=== PATIENT | male | born 1955 | race Caucasian/White ===

== ENCOUNTER → 2017-05-20 | Outpatient (CLI) | payer OTHER ==
[2015-10-24 01:37] VITALS: BP 113/58
[~2017-05-20] MED LIST: GADOBUTROL 10 MMOL/10 ML VIAL IV ONE
--- NOTE | 2017-05-20 11:51 | KCIC ---
MR of the right tibia fibula with and without contrast HISTORY: Mass for 40 years. Calf pain with certain movements. TECHNIQUE: Routine sequences before and after intravenous contrast. FINDINGS: There is a subcutaneous mass of the lower leg posteriorly, at the level of the distal tibia and fibula within the posterior subcutaneous tissues. This is located just posterior to the distal gastrocnemius and soleus musculature. Measures 5.1 cm wide by 2.8 cm AP by 5.5 cm height. This demonstrates isointense T1 characteristics. T2-weighted images demonstrate mostly fluid signal equivalent with some internal areas of irregularity and septation. There is some mild contrast enhancement. This appears confined to the superficial tissues. No deep intramuscular invasion. Muscle tissue is intrinsically intact. No bone marrow edema, bone destruction or acute fracture. IMPRESSION: Solid subcutaneous soft tissue mass at the posterior lower leg, could be benign or malignant. No evidence of deep intramuscular invasion. Electronically signed by: Jovani Hodge MD (05/20/2017 11:48 AM) [facility]
== END | disposition home or self-care (01) ==
LOC: KCIC MRI 09:41
PROVIDERS: ATTEND Surgery
DX: R22.41 Localized swelling, mass and lump, right lower limb (principal)
CPT/HCPCS: 73720; 82565; A9585

== ENCOUNTER 2017-06-03 06:44 | Outpatient (CLI) | payer OTHER ==
[~2017-06-03] VITALS: Ht 175.3 cm; Wt 97.5 kg
[2017-06-03 07:41] LABS: BASO # 0.1 x10^3/uL (0.0-0.2); BASO % 1 % (0-3); EOS % 4 % (0-3); HEMATOCRIT 43.4 % (39.0-53.0); HEMOGLOBIN 14.5 g/dL (13.0-17.5); LYMPH # 1.5 x10^3/uL (1.0-4.8); LYMPH % 18 % (24-48); MEAN CORPUSCULAR HEMOGLOBIN 29 pg (25-35); MEAN CORPUSCULAR HGB CONC 33 g/dL (31-37); MEAN CORPUSCULAR VOLUME 88 fL (79-100); MONO % 8 % (0-9); NEUT % 69 % (31-73); PLATELET COUNT 231 x10^3/uL (140-400); RED BLOOD COUNT 4.94 x10^6/uL (4.30-5.70); RED CELL DISTRIBUTION WIDTH 15.3 % (11.5-14.5); WHITE BLOOD COUNT 8.2 x10^3/uL (4.0-11.0)
[2017-06-03 07:55] VITALS: BP 119/62
[2017-06-03 08:01] LABS: INR 1.1 (0.8-1.1); PROTHROMBIN TIME PATIENT 13.5 SEC (11.7-14.0)
[2017-06-03] MEDS ORDERED: PANT40TA3 PO (08:05)
[2017-06-03] MEDS ORDERED: CEPH500C PO (08:05)
[2017-06-03] MEDS ORDERED: AREDS (08:05)
[2017-06-03] MEDS ORDERED: LIDOCAINE 1% / SOD BICARB 8.4% 20 ML VIAL. IJ ONE ×2 (08:37→09:00)
--- NOTE | 2017-06-03 10:12 | RAD ---
Ultrasound-guided biopsy of posterior right leg mass 06/03/2017 Indication: 61-year-old male with posterior right leg mass which has slowly increased over the last approximately 30 years according to the patient. The risks and benefits of the procedure were discussed the patient. Informed consent was obtained. A timeout procedure was performed. The right posterior leg was prepped and draped using sterile barrier technique. Ultrasound evaluation demonstrated mildly heterogenous hypoechoic mass in subcutaneous tissues of the right posterior leg. Minimal internal blood flow seen on color Doppler imaging. 1% lidocaine without epinephrine was administered to the skin and overlying soft tissues. 2 x 18-gauge core biopsy samples were obtained. Manual pressure was held to achieve hemostasis. Repeat ultrasound in distress no immediate complications. Impression: Successful ultrasound-guided biopsy of right posterior leg mass
--- NOTE | 2017-06-05 17:03 | PATHOLOGY ---
PATHOLOGY REPORT * * * * * * * * FINAL DIAGNOSIS: Right posterior calf mass, ultrasound-guided needle biopsy: - SPINDLE CELL NEOPLASM-CASE SENT FOR CONSULTATION. COMMENT: Sections of the right posterior calf mass needle biopsy reveal an atypical spindle cell proliferation within a myxoid appearing stroma. Some of the spindle cells have enlarged hyperchromatic nuclei. Because of the limited size of the specimen and atypical histologic features, the case is sent for consultation to [facility]. These results will be reported separately. (JPM:mgr; 06/05/2017) REPORT ELECTRONICALLY SIGNED BY: Howard Laughlin M.D. DATE/TIME: 06/05/2017 17:03 * * * * * * * * GROSS PATHOLOGY: Received in formalin labeled "Madhav Vasquez, right calf mass," are two needle cores of ko soft tissue measuring 1.0 and 1.3 cm in length and less than 0.1 cm in diameter. The specimen is submitted entirely in cassette A1. (JPM; 06/03/17) INITIAL CPT CODE(S): A; 18647 Professional services performed [place] [address] Technical services performed by [facility] at [address] [place] [address]. SPECIMEN(S) RECEIVED: A.Right calf mass CLINICAL HISTORY: Right calf mass, superficial, slowly growing over ~ 30 years PATIENT: MADHAV VSAQUEZ /AGE: 907/10/1955 (Age: 61) PATIENT #: [id number] ALT CASE #: SPECIMEN COLLECTION DATE: 06/03/2017 SPECIMEN RECEIVED DATE: 06/03/2017 [facility] - [address] [place] [address] - PHONE: [phone] * * * END OF REPORT * * *
== END 2017-06-03 09:34 | disposition home or self-care (01) ==
LOC: INTRAD 06:44
PROVIDERS: ATTEND Surgery
DX: R22.31 Localized swelling, mass and lump, right upper limb (principal); F17.200 Nicotine dependence, unspecified, uncomplicated; Z86.69 Personal history of other diseases of the nervous system and sense organs; Z87.39 Personal history of other diseases of the musculoskeletal system and connective tissue; Z72.0 Tobacco use; Z79.01 Long term (current) use of anticoagulants; Z98.41 Cataract extraction status, right eye
CPT/HCPCS: 20206; 36415; 76942; 85027; 85610; C1887

== ENCOUNTER 2017-06-06 17:14 | Emergency (ER) | payer OTHER ==
[~2017-06-06] VITALS: Ht 175.3 cm; Wt 97.5 kg
[~2017-06-06 17:14] MED LIST changes: +AREDS; +CEPH500C PO; -GADOBUTROL 10 MMOL/10 ML VIAL IV ONE; +PANT40TA3 PO
[2017-06-06] MEDS ORDERED: OXYMETAZOLINE 0.05% NASAL SPRAY 30ML BOTTLE. NS ONE (17:45)
[2017-06-06] MEDS ORDERED: oxyCODONE/APAP 5/325 1 TAB TABLET PO ONE (17:45)
[2017-06-06] MEDS ORDERED: LIDOCAINE 1% / SOD BICARB 8.4% 20 ML VIAL. IJ ONE (18:00)
--- NOTE | 2017-06-06 18:43 | PHYS DOC ---
Past Medical History Past Medical History: Other Additional Past Medical Histor: Darier skin disease, hiatal hernia Past Surgical History: Tonsillectomy Additional Past Surgical Histo: stretch esphogus, Lumber fusion, L eye, L thumb , R cataract Alcohol Use: Occasionally Drug Use: None Adult General Chief Complaint Chief Complaint: MECHANICAL FALL HPI HPI Patient is a 61 year old male presenting to the emergency department for evaluation of head pain status post fall shortly prior to arrival. Patient reportedly was up on his ladder approximately 7 feet high trying to pull some branches. Patient says that he lost his balance and fell forward landing on the left side of his face. 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 Patient says that his tetanus status is up-to- date. Denies any head neck chest abdomen back or extremity pain rather he only says his only pain is on his face. He denies taking any blood thinners and he is in no obvious distress with normal vital signs. Review of Systems Review of Systems Constitutional: Denies fever or chills [] Eyes: Denies change in visual acuity, redness, or eye pain [] HENT: Denies nasal congestion or sore throat [] Respiratory: Denies cough or shortness of breath [] Cardiovascular: No additional information not addressed in HPI [] GI: Denies abdominal pain, nausea, vomiting, bloody stools or diarrhea [] : Denies dysuria or hematuria [] Musculoskeletal: Denies back pain or joint pain [] Integument: Denies rash or skin lesions [] Neurologic: Denies headache, focal weakness or sensory changes [] Current Medications Current Medications Current Medications Medications (Trade) Dose Ordered Sig/[facility] Start Time Stop Time Status Last Admin Dose Admin Fentanyl Citrate (Fentanyl 2ml Vial) 50 mcg 1X ONCE 06/06/17 19:45 06/06/17 19:46 DC Ketorolac Tromethamine (Toradol) 15 mg 1X ONCE 06/06/17 19:45 06/06/17 19:46 DC Lidocaine/Sodium Bicarbonate (Buffered Lidocaine 1%) 20 ml 1X ONCE 06/06/17 18:00 06/06/17 18:01 DC 06/06/17 18:02 20 ML Oxycodone/ Acetaminophen (Percocet 5/325) 2 tab 1X ONCE 06/06/17 17:45 06/06/17 17:46 DC 06/06/17 17:46 2 TAB Oxymetazoline HCl (Afrin) 2 spray 1X ONCE 06/06/17 17:45 06/06/17 17:46 DC 06/06/17 18:04 2 SPRAY Piperacillin Sod/ Tazobactam Sod 3.375 gm/Sodium Chloride 50 ml @ 100 mls/hr 1X ONCE 06/06/17 19:15 06/06/17 19:44 DC 06/06/17 19:15 100 MLS/HR Allergies Allergies Allergies Coded Allergies Type Severity Reaction Last Updated Verified No Known Drug Allergies 10/24/15 No Physical Exam Physical Exam Constitutional: Well developed, well nourished, no acute distress, non-toxic appearance. [] HENT: Normocephalic, trauma to face, pain on the left maxilla with pain in his bridge of his nose as well. There is a septal hematoma on the left side. No active bleeding currently. Eyes: PERRLA on R eye. Neck: Normal range of motion, no tenderness, supple, no stridor. [] Cardiovascular:Heart rate regular rhythm, no murmur [] Lungs & Thorax: Bilateral breath sounds clear to auscultation [] Abdomen: Bowel sounds normal, soft, no tenderness, no masses, no pulsatile masses. [] Skin: Warm, dry, no erythema, no rash. [] Back: No tenderness, no CVA tenderness. [] Extremities: No tenderness, no cyanosis, no clubbing, ROM intact, no edema. [] Neurologic: Alert and oriented X 3, normal motor function, normal sensory function, no focal deficits noted. [] Current Patient Data Vital Signs Vital Signs Date Time Temp Pulse Resp B/P (MAP) Pulse Ox O2 Delivery O2 Flow Rate FiO2 06/06/17 19:46 20 94 Room Air 06/06/17 18:05 63 142/65 (90) 06/06/17 17:20 97.5 97.5 EKG EKG [] Radiology/Procedures Radiology/Procedures CT HEAD AND CERVICAL SPINE WO, CT MAXILLOFACIAL WO CONTRAST dated 06/06/2017 6:12 PM . History: Status post fall, pain Technique: Noncontrast CT imaging was performed of the head, maxillofacial region, and cervical spine. Multiplanar reconstruction images are submitted. Exposure: One or more of the following individualized dose reduction techniques were utilized for this examination: 1. Automated exposure control 2. Adjustment of the mA and/or kV according to patient size 3. Use of iterative reconstruction technique. Head CT Comparison: None Findings: No acute extra-axial or parenchymal hemorrhage is identified. There is no significant intra-axial mass effect, midline shift, or extra-axial fluid collection. The maldonado-white differentiation of the major vascular territories is preserved. The ventricles, sulci, and cisterns are within normal limits in size and configuration. Mastoid air cells are aerated.There is no significant focal calvarial abnormality. Impression: 1. No acute intracranial abnormality is identified. Cervical spine CT Comparison: None Findings: No acute cervical spine fracture is identified. Vertebral body stature and AP alignment are within normal limits. Atlanto-axial distance is within normal limits, associated degenerative change. There is appropriate alignment of lateral masses of C1 relative to C2. Occipital condylar-C1 relationship is maintained. There is moderate to severe degenerative disc disease C4-5 and to lesser degree at C5-C6. There is minimal disc osteophyte complex C4-5 at which there is likely mild spinal stenosis. There is uncovertebral degenerative change greatest at C4-5, contributes to severe narrowing of the left neural foramen at this level. There is facet degenerative change greatest at C4-5 and on the right at C5-C6. There is emphysema of the visualized lung apices. Small foci of density in the visualized superior trachea could be due to mucus. There are multiple nonspecific nodes of the visualized bilateral neck, borderline enlarged node posteriorly on the left at 1 cm short axis dimension and also on the right up to 1.2 cm short axis dimension. Impression: 1. No acute cervical spine fracture is identified. 2. There is degenerative disc disease and spondylosis greatest C4-5 at which is likely mild spinal stenosis. There is also narrowing the left C4-5 neural foramen due to facet and uncovertebral degenerative change. 3. There are multiple nodes of the bilateral neck, a couple which are slightly enlarged for which clinical follow-up advised. Maxillofacial CT: FINDINGS: There is near complete opacification of the left maxillary sinus, air-fluid level present. There is slightly depressed and comminuted fracture of the anterior wall of left maxillary sinus, also nondisplaced fracture of the lateral wall of the left maxillary sinus. There is prominent gas in the soft tissues anterior to the left orbit and left maxillary sinus as well as the nose greater on the left. There is some gas in the inferomedial aspect of the left orbit. Left globe is small and misshapen with some internal calcification. There is a fracture of the left inferior orbital wall without significant displacement. There is probably a nondisplaced fracture of the left lamina papyracea. There is air-fluid level in the left sphenoid sinus. There is patchy left ethmoid air cell mucosal thickening. Frontal sinus is not significantly pneumatized. IMPRESSION: 1. There are fractures of the anterior and lateral left maxillary ortiz, also nondisplaced fracture of the left inferior orbital wall and probable nondisplaced fracture of the left lamina papyracea. There are air-fluid levels in the left maxillary and sphenoid sinuses. There is gas in the soft tissues, also in the left orbit. Misshapen and partially calcified left globe is likely chronic. Electronically signed by: Suman Moran MD (06/06/2017 6:45 PM) [facility] DICTATED and SIGNED BY: SUMAN MORAN MD DATE: 06/06/171831 Impressions: Septal hematoma drained by applying topical lidocaine and then injected small amount of lidocaine with epinephrine and 16-gauge needle used to evacuate hematoma. Good results but no packing placed. Course & Med Decision Making Course & Med Decision Making I recommended transfer to a facility with ENT coverage given this is a considered a open fracture. Patient refused and verbalized understanding of why I wanted to transfer him including higher level of care and avoiding infection in his face as he is exposed to pathogens that can cause worsening infection. A compromise was made that he would follow with his ENT tomorrow and he will come back to the ER sooner if he is getting worse. Patient aware and agreeable with plan for discharge and verbalized understanding of the need for short-term follow-up and strict ER return precautions discussed including worsening pain fevers vomiting or other general concerns. Dragon Disclaimer Dragon Disclaimer This electronic medical record was generated, in whole or in part, using a voice recognition dictation system. Departure Departure Impression: Primary Impression: Facial bones, open fracture Additional Impressions: Nasal septal hematoma Nose abrasion Disposition: 01 HOME, SELF-CARE Condition: STABLE Referrals: HOMAR WOOTEN MD (PCP) Patient Instructions: Facial Fracture Additional Instructions: Call your ENT tomorrow and Dr. Wharton at [phone] and let them know you are a [facility] resident. Come back to the ED sooner with any new or worsening symptoms. Scripts Amoxicillin/Potassium Clav (AUGMENTIN 875-125 TABLET) 1 Each Tablet 1 TAB PO BID, #14 TAB Prov: HOMAR CASTRO DO 06/06/17 Ondansetron (ZOFRAN ODT) 4 Mg Tab.rapdis 4 MG PO BID Y for NAUSEA/VOMITING, #10 TAB Prov: HOMAR CASTRO DO 06/06/17 Hydrocodone/Apap 5-325 (NORCO 5-325 TABLET) 1 Each Tablet 1 TAB PO PRN Q6HRS Y for PAIN, #20 TAB 0 Refills Prov: HOMAR CASTRO DO 06/06/17 Problem Qualifiers Primary Impression: Facial bones, open fracture Encounter type: initial encounter Facial bone/location: unspecified site of maxillary bone Laterality: left Qualified Codes: S02.40DB - Maxillary fracture, left side, initial encounter for open fracture HOMAR CASTRO DO Jun 06, 2017 18:43
--- NOTE | 2017-06-06 18:48 | RAD ---
CT HEAD AND CERVICAL SPINE WO, CT MAXILLOFACIAL WO CONTRAST dated 06/06/2017 6:12 PM . History: Status post fall, pain Technique: Noncontrast CT imaging was performed of the head, maxillofacial region, and cervical spine. Multiplanar reconstruction images are submitted. Exposure: One or more of the following individualized dose reduction techniques were utilized for this examination: 1. Automated exposure control 2. Adjustment of the mA and/or kV according to patient size 3. Use of iterative reconstruction technique. Head CT Comparison: None Findings: No acute extra-axial or parenchymal hemorrhage is identified. There is no significant intra-axial mass effect, midline shift, or extra-axial fluid collection. The maldonado-white differentiation of the major vascular territories is preserved. The ventricles, sulci, and cisterns are within normal limits in size and configuration. Mastoid air cells are aerated.There is no significant focal calvarial abnormality. Impression: 1. No acute intracranial abnormality is identified. Cervical spine CT Comparison: None Findings: No acute cervical spine fracture is identified. Vertebral body stature and AP alignment are within normal limits. Atlanto-axial distance is within normal limits, associated degenerative change. There is appropriate alignment of lateral masses of C1 relative to C2. Occipital condylar-C1 relationship is maintained. There is moderate to severe degenerative disc disease C4-5 and to lesser degree at C5-C6. There is minimal disc osteophyte complex C4-5 at which there is likely mild spinal stenosis. There is uncovertebral degenerative change greatest at C4-5, contributes to severe narrowing of the left neural foramen at this level. There is facet degenerative change greatest at C4-5 and on the right at C5-C6. There is emphysema of the visualized lung apices. Small foci of density in the visualized superior trachea could be due to mucus. There are multiple nonspecific nodes of the visualized bilateral neck, borderline enlarged node posteriorly on the left at 1 cm short axis dimension and also on the right up to 1.2 cm short axis dimension. Impression: 1. No acute cervical spine fracture is identified. 2. There is degenerative disc disease and spondylosis greatest C4-5 at which is likely mild spinal stenosis. There is also narrowing the left C4-5 neural foramen due to facet and uncovertebral degenerative change. 3. There are multiple nodes of the bilateral neck, a couple which are slightly enlarged for which clinical follow-up advised. Maxillofacial CT: FINDINGS: There is near complete opacification of the left maxillary sinus, air-fluid level present. There is slightly depressed and comminuted fracture of the anterior wall of left maxillary sinus, also nondisplaced fracture of the lateral wall of the left maxillary sinus. There is prominent gas in the soft tissues anterior to the left orbit and left maxillary sinus as well as the nose greater on the left. There is some gas in the inferomedial aspect of the left orbit. Left globe is small and misshapen with some internal calcification. There is a fracture of the left inferior orbital wall without significant displacement. There is probably a nondisplaced fracture of the left lamina papyracea. There is air-fluid level in the left sphenoid sinus. There is patchy left ethmoid air cell mucosal thickening. Frontal sinus is not significantly pneumatized. IMPRESSION: 1. There are fractures of the anterior and lateral left maxillary ortiz, also nondisplaced fracture of the left inferior orbital wall and probable nondisplaced fracture of the left lamina papyracea. There are air-fluid levels in the left maxillary and sphenoid sinuses. There is gas in the soft tissues, also in the left orbit. Misshapen and partially calcified left globe is likely chronic. Electronically signed by: Ernesto Moran MD (06/06/2017 6:45 PM) [facility]
[2017-06-06] MEDS ORDERED: PIPERACILLIN/TAZOBACTAM 3.375 GM in IV NORMAL SALINE 50ML 50 ML IV ONE (19:15)
[2017-06-06] MEDS ORDERED: KETOROLAC TROMETHAMINE 30 MG/ML INJ. IV ONE (19:45)
[2017-06-06] MEDS ORDERED: fentaNYL PF VIAL 100 MCG/2 ML VIAL IV ONE (19:45)
[2017-06-06] MEDS ORDERED: HYDR-971 PO (19:59)
[2017-06-06] MEDS ORDERED: ONDA4TAB10 PO (19:59)
[2017-06-06] MEDS ORDERED: AMOX1TAB61 PO (19:59)
[2017-06-06 20:22] VITALS: BP 118/60
== END 2017-06-06 20:36 | disposition home or self-care (01) ==
LOC: ER 17:14
DX: S02.40FB Zygomatic fracture, left side, initial encounter for open fracture (principal); S02.82XA Fracture of other specified skull and facial bones, left side, initial encounter for closed fracture; S00.33XA Contusion of nose, initial encounter; H54.42 Blindness, left eye, normal vision right eye; Z98.41 Cataract extraction status, right eye; W11.XXXA Fall on and from ladder, initial encounter; Y93.89 Activity, other specified; Y92.89 Other specified places as the place of occurrence of the external cause; Y99.8 Other external cause status
CPT/HCPCS: 10140; 70450; 70486; 72125; 96365; 96375; 99284; J1885; J2543; J3010

== ENCOUNTER 2017-06-13 17:08 | Emergency (ER) | payer OTHER ==
[~2017-06-13] VITALS: Ht 175.3 cm; Wt 97.5 kg
[~2017-06-13 17:08] MED LIST changes: +AMOX1TAB61 PO; +HYDR-971 PO; +ONDA4TAB10 PO
[2017-06-13] MEDS ORDERED: ALBUTEROL SULFATE 2.5 MG/3 ML NEBU. NEB ONE ×2 (19:00)
[2017-06-13] MEDS ORDERED: predniSONE 10 MG TABLET PO ONE (19:00)
[2017-06-13] MEDS ORDERED: IPRATRPIUM/ALBUTEROL 0.5/2.5MG 3 ML NEBU. NEB ONE (19:00)
[2017-06-13 19:24] LABS: BASO # 0.1 x10^3/uL (0.0-0.2); BASO % 1 % (0-3); EOS % 3 % (0-3); HEMATOCRIT 41.6 % (39.0-53.0); LYMPH # 1.4 x10^3/uL (1.0-4.8); LYMPH % 14 % (24-48); MEAN CORPUSCULAR HEMOGLOBIN 30 pg (25-35); MEAN CORPUSCULAR HGB CONC 34 g/dL (31-37); MEAN CORPUSCULAR VOLUME 88 fL (79-100); MONO % 7 % (0-9); NEUT % 75 % (31-73); PLATELET COUNT 233 x10^3/uL (140-400); RED BLOOD COUNT 4.74 x10^6/uL (4.30-5.70); RED CELL DISTRIBUTION WIDTH 15.2 % (11.5-14.5); WHITE BLOOD COUNT 9.9 x10^3/uL (4.0-11.0)
[2017-06-13 19:36] LABS: CALCIUM 8.6 mg/dL (8.5-10.1); CREATININE 0.9 mg/dL (0.7-1.3); GFR 85.2; POTASSIUM 3.4 mmol/L (3.5-5.1)
[2017-06-13 19:42] LABS: ALBUMIN 3.4 g/dL (3.4-5.0); ALBUMIN/GLOBULIN RATIO 0.9 (1.0-1.7); TOTAL BILIRUBIN 0.4 mg/dL (0.2-1.0); TOTAL PROTEIN 7.2 g/dL (6.4-8.2)
[2017-06-13] MEDS ORDERED: CONTRAST GIVEN MC PRN (20:00)
[2017-06-13] MEDS ORDERED: IOHEXOL 300 MG/ML 75 ML VIAL IV ONE (20:15)
--- NOTE | 2017-06-13 21:00 | RAD ---
CT CHEST W/CONTRAST dated 06/13/2017 7:44 PM Indication: Hemoptysis, right hilar fullness, recent fall last week, pain Comparison: No comparison is available. Technique: Contiguous axial imaging the chest performed following the administration of intravenous contrast. One or more of the following individualized dose reduction techniques were utilized for this examination: 1. Automated exposure control 2. Adjustment of the mA and/or kV according to patient size 3. Use of iterative reconstruction technique Findings: Heart size mildly enlarged. No pericardial effusion. There are calcified bilateral hilar, subcarinal and left paratracheal lymph nodes. Mild diffuse wall thickening of the thoracic esophagus. Central airways are patent. Mild diffuse bronchial wall thickening. No endobronchial lesion is apparent. There is mild/moderate upper zone emphysema. Mild dependent groundglass opacity in the lower lobes, likely atelectasis. No consolidation or pleural effusion. No pneumothorax. Mild right apical scarring. Small noncalcified pulmonary nodule in the left lower lobe on image 41 measures 5 mm. There are a few scattered calcified granuloma. Possible small nodule in the left upper lobe on image 24 measures 4 mm. Limited images of the upper abdomen show calcific stones at the gallbladder neck. Prominent duodenal diverticulum. Exophytic low-density focus at the right kidney midpole, likely cyst. Bone window show no acute findings. There is mild superior endplate wedge compression deformity of L1, age indeterminate. Multilevel spondylosis. Old healed rib fractures on the right. IMPRESSION: 1. No acute abnormality of chest. 2. Diffuse bronchial wall thickening. Consider acute or chronic bronchial inflammatory process. 3. Small noncalcified pulmonary nodules in the left lower lobe and left upper lobe, nonspecific. Follow-up imaging may be warranted to ensure stability. 3. Mild to moderate emphysema. 4. Diffuse wall thickening of the thoracic esophagus, nonspecific. Consider acute or chronic esophagitis. 5. Cholelithiasis. 6. Mild superior endplate compression fracture at L1, age indeterminate. Electronically signed by: Jovani Correia MD (06/13/2017 8:56 PM) [facility]
[2017-06-13 22:00] VITALS: BP 141/64
[2017-06-13] MEDS ORDERED: PRED50TA PO (22:49)
[2017-06-13] MEDS ORDERED: HYDR-971 PO (22:49)
[2017-06-13] MEDS ORDERED: VENTOLIN HFA18 GM INH (22:49)
--- NOTE | 2017-06-13 22:51 | PHYS DOC ---
Past Medical History Past Medical History: Other Additional Past Medical Histor: Darier skin disease, hiatal hernia Past Surgical History: Tonsillectomy Additional Past Surgical Histo: stretch esphogus, Lumber fusion, L eye, L thumb , R cataract Alcohol Use: Occasionally Drug Use: None Adult General Chief Complaint Chief Complaint: COUGH HPI HPI Patient is a 61 year old [f__sex] who presents with [] Review of Systems Review of Systems Constitutional: Denies fever or chills [] Eyes: Denies change in visual acuity, redness, or eye pain [] HENT: Denies nasal congestion or sore throat [] Respiratory: Denies cough or shortness of breath [] Cardiovascular: No additional information not addressed in HPI [] GI: Denies abdominal pain, nausea, vomiting, bloody stools or diarrhea [] : Denies dysuria or hematuria [] Musculoskeletal: Denies back pain or joint pain [] Integument: Denies rash or skin lesions [] Neurologic: Denies headache, focal weakness or sensory changes [] Endocrine: Denies polyuria or polydipsia [] Current Medications Current Medications Current Medications Medications (Trade) Dose Ordered Sig/Miri Start Time Stop Time Status Last Admin Dose Admin Albuterol Sulfate (Ventolin Neb Soln) 2.5 mg 1X ONCE 06/13/17 19:00 06/13/17 19:01 DC 06/13/17 19:20 2.5 MG Albuterol/ Ipratropium (Duoneb) 3 ml 1X ONCE 06/13/17 19:00 06/13/17 19:01 DC 06/13/17 19:20 3 ML Info (Do NOT chart on this entry -- for MONITORING) 1 each PRN DAILY PRN 06/13/17 20:00 06/15/17 19:59 Iohexol (Omnipaque 300 Mg/ml) 75 ml 1X ONCE 06/13/17 20:15 06/13/17 20:16 DC 06/13/17 20:39 75 ML Prednisone (Prednisone) 40 mg 1X ONCE 06/13/17 19:00 06/13/17 19:01 DC 06/13/17 19:11 40 MG Allergies Allergies Allergies Coded Allergies Type Severity Reaction Last Updated Verified No Known Drug Allergies 10/24/15 No Physical Exam Physical Exam Constitutional: Well developed, well nourished, no acute distress, non-toxic appearance. [] HENT: Normocephalic, atraumatic, bilateral external ears normal, oropharynx moist, no oral exudates, nose normal. [] Eyes: PERRLA, EOMI, conjunctiva normal, no discharge. [] Neck: Normal range of motion, no tenderness, supple, no stridor. [] Cardiovascular:Heart rate regular rhythm, no murmur [] Lungs & Thorax: Bilateral breath sounds clear to auscultation [] Abdomen: Bowel sounds normal, soft, no tenderness, no masses, no pulsatile masses. [] Skin: Warm, dry, no erythema, no rash. [] Back: No tenderness, no CVA tenderness. [] Extremities: No tenderness, no cyanosis, no clubbing, ROM intact, no edema. [] Neurologic: Alert and oriented X 3, normal motor function, normal sensory function, no focal deficits noted. [] Psychologic: Affect normal, judgement normal, mood normal. [] Current Patient Data Vital Signs Vital Signs Date Time Temp Pulse Resp B/P (MAP) Pulse Ox O2 Delivery O2 Flow Rate FiO2 06/13/17 20:00 21 99/61 (74) 95 06/13/17 19:22 Room Air 06/13/17 17:30 98.4 69 98.4 Lab Values Laboratory Tests Test 06/13/17 19:15 White Blood Count 9.9 x10^3/uL (4.0-11.0) Red Blood Count 4.74 x10^6/uL (4.30-5.70) Hemoglobin 14.0 g/dL (13.0-17.5) Hematocrit 41.6 % (39.0-53.0) Mean Corpuscular Volume 88 fL (79-100) Mean Corpuscular Hemoglobin 30 pg (25-35) Mean Corpuscular Hemoglobin Concent 34 g/dL (31-37) Red Cell Distribution Width 15.2 % (11.5-14.5) H Platelet Count 233 x10^3/uL (140-400) Neutrophils (%) (Auto) 75 % (31-73) H Lymphocytes (%) (Auto) 14 % (24-48) L Monocytes (%) (Auto) 7 % (0-9) Eosinophils (%) (Auto) 3 % (0-3) Basophils (%) (Auto) 1 % (0-3) Neutrophils # (Auto) 7.4 x10^3uL (1.8-7.7) Lymphocytes # (Auto) 1.4 x10^3/uL (1.0-4.8) Monocytes # (Auto) 0.7 x10^3/uL (0.0-1.1) Eosinophils # (Auto) 0.3 x10^3/uL (0.0-0.7) Basophils # (Auto) 0.1 x10^3/uL (0.0-0.2) Sodium Level 140 mmol/L (136-145) Potassium Level 3.4 mmol/L (3.5-5.1) L Chloride Level 102 mmol/L (98-107) Carbon Dioxide Level 27 mmol/L (21-32) Anion Gap 11 (6-14) Blood Urea Nitrogen 12 mg/dL (8-26) Creatinine 0.9 mg/dL (0.7-1.3) Estimated GFR (Cockcroft-Gault) 85.2 BUN/Creatinine Ratio 13 (6-20) Glucose Level 90 mg/dL (70-99) Calcium Level 8.6 mg/dL (8.5-10.1) Total Bilirubin 0.4 mg/dL (0.2-1.0) Aspartate Amino Transferase (AST) 43 U/L (15-37) H Alanine Aminotransferase (ALT) 71 U/L (16-63) H Alkaline Phosphatase 180 U/L (46-116) H Total Protein 7.2 g/dL (6.4-8.2) Albumin 3.4 g/dL (3.4-5.0) Albumin/Globulin Ratio 0.9 (1.0-1.7) L Laboratory Tests 06/13/17 19:15 Laboratory Tests 06/13/17 19:15 EKG EKG [] Radiology/Procedures Radiology/Procedures [] Course & Med Decision Making Course & Med Decision Making Pertinent Labs and Imaging studies reviewed. (See chart for details) [] Dragon Disclaimer Dragon Disclaimer This electronic medical record was generated, in whole or in part, using a voice recognition dictation system. Departure Departure Impression: Primary Impression: Hemoptysis Additional Impressions: Cough COPD exacerbation Pulmonary nodule Disposition: 01 HOME, SELF-CARE Condition: IMPROVED Referrals: HOMAR WOOTEN MD (PCP) Patient Instructions: Chronic Obstructive Pulmonary Disease, Hemoptysis, Pulmonary Nodule, Smoking Cessation Additional Instructions: Please follow up with your doctor for further evaluation of your coughing up of blood if it persists. You have a small nodule in your lung that is likely secondary to old scarring however this should also be followed up by her primary care doctor. I have given you a copy of her CT report to take with you when he see Dr. Wooten next. Your physical exam and your CT scan are consistent with you having COPD. I have started you on an albuterol inhaler and steroids. He should also see her doctor so that they can continue and optimize her management for your COPD. They might need to refer you to a lung specialist. Scripts Prednisone (PREDNISONE) 50 Mg Tablet 1 TAB PO DAILY, #5 TAB Prov: LASHANDA WEBER MD 06/13/17 Hydrocodone/Apap 5-325 (NORCO 5-325 TABLET) 1 Each Tablet 1 TAB PO QID Y for PAIN, #20 TAB Prov: LASHANDA WEBER MD 06/13/17 Albuterol Sulfate (VENTOLIN HFA INHALER) 18 Gm Hfa.aer.ad 2 PUFF INH QID Y for WHEEZING, #1 INHALER 0 Refills Prov: LASHANDA WEBER MD 06/13/17 Problem Qualifiers LASHANDA WEBER MD Jun 13, 2017 22:51
--- NOTE | 2017-06-14 08:26 | RAD ---
Indication cough. PA and lateral views of the chest were obtained. Comparison is made to an examination 10/24/2015. There are probable background changes of emphysema or fibrosis. There are some calcified hilar or mediastinal lymph nodes. Heart size is similar to the previous exam. There is no gross congestive heart failure. There is no consolidated pneumonia. A significant change compared to the previous exam is not seen. IMPRESSION:: Chronic changes. No acute finding. No significant change
== END 2017-06-13 22:55 | disposition home or self-care (01) ==
LOC: ER 17:08
DX: J44.1 Chronic obstructive pulmonary disease with (acute) exacerbation (principal); R04.2 Hemoptysis; R91.1 Solitary pulmonary nodule
CPT/HCPCS: 36415; 71020; 71260; 80053; 85027; 94250; 94640; 99285; J7512; J7613; J7620; Q9967

== ENCOUNTER → 2017-07-09 | Outpatient (CLI) | payer OTHER ==
[2017-06-13 22:00] VITALS: BP 141/64
[~2017-07-09] MED LIST changes: +PRED50TA PO; +VENTOLIN HFA18 GM INH
--- NOTE | 2017-07-09 12:13 | RAD ---
Radionuclide gastric emptying study, 07/09/2017: History: Bloating, gassiness The study was performed utilizing a solid test meal radiolabeled with 2.1 mCi of technetium 99m sulfur colloid. The time to half emptying of the test meal from the patient's stomach was estimated at 178 minutes. A normal T1/2 is 60 minutes +/- 30 minutes. IMPRESSION: Moderately delayed gastric emptying.
== END | disposition home or self-care (01) ==
LOC: NM 06:50
PROVIDERS: ATTEND Internal Medicine Gastroenterology
DX: K30 Functional dyspepsia (principal)
CPT/HCPCS: 78264; A9541

== ENCOUNTER 2017-08-24 11:41 | Emergency (ER) | payer OTHER ==
[~2017-08-24] VITALS: Ht 175.3 cm; Wt 90.7 kg
[2017-08-24 11:55] VITALS: BP 116/68
[2017-08-24] MEDS ORDERED: HYDROcodone/APAP 5/325MG 1 TAB TABLET PO ONE (12:15)
[2017-08-24] MEDS ORDERED: LIDOCAINE 1%/EPI 1:200,000 30 ML VIAL. INJ ONE (12:15)
--- NOTE | 2017-08-24 13:51 | RAD ---
Three-view right hand radiographs 08/24/2017 Clinical history: Chainsaw laceration to the right hand earlier today. PA, lateral and oblique digital radiographs of the right hand were obtained. No fracture or dislocation of the right hand is seen. A 3 mm metallic foreign body is seen within the proximal metaphysis of the proximal phalanx of the right first finger. This is of uncertain age. Mild to moderate degenerative changes are seen involving the first MCP joint. Moderate to severe degenerative changes are seen involving the first carpometacarpal joint. Impression: No fracture or dislocation of the right hand is seen.
--- NOTE | 2017-08-24 14:54 | PHYS DOC ---
Past Medical History Past Medical History: Other Additional Past Medical Histor: Darier skin disease, hiatal hernia Past Surgical History: Tonsillectomy Additional Past Surgical Histo: stretch esphogus, Lumber fusion, L eye, L thumb , R cataract Alcohol Use: Occasionally Drug Use: None Adult General Chief Complaint Chief Complaint: LACERATION/AVULSION HPI HPI Patient is a 62 year old male who presents with right fingers laceration. Patient states he got cut by a chain saw that kicked back. Review of Systems Review of Systems Constitutional: Denies fever or chills [] Musculoskeletal: Denies back pain or joint pain [] Integument: right fingers laceration Neurologic: Denies headache, focal weakness or sensory changes [] Current Medications Current Medications Current Medications Medications (Trade) Dose Ordered Sig/Miri Start Time Stop Time Status Last Admin Dose Admin Acetaminophen/ Hydrocodone Bitart (Lortab 5/325) 2 tab 1X ONCE 08/24/17 12:15 08/24/17 12:16 DC 08/24/17 12:23 2 TAB Lidocaine/ Epinephrine (Xylocaine 1%-Epi 1:200,000) 30 ml 1X ONCE 08/24/17 12:15 08/24/17 12:16 DC Allergies Allergies Allergies Coded Allergies Type Severity Reaction Last Updated Verified No Known Drug Allergies 10/24/15 No Physical Exam Physical Exam Constitutional: Well developed, well nourished, no acute distress, non-toxic appearance. [] Skin: Right ventral mid phalanx With a laceration approximately 1 cm long, right proximal middle finger at the MIP joint with a laceration approx. 1 cm, right ring finger with a laceration approximately 2 cm long proximal phalange next, right pinky finger with a laceration approximately 1 cm long mid phalanx. There is no tendon involvement in either of these lacerations. Full range of motion to the fingers. Cap refill less than 2 seconds to the fingers. Adequate radial medial and ulnar sensation to the right hand. +2 right radial pulse. Neurologic: Alert and oriented X 3, normal motor function, normal sensory function, no focal deficits noted. [] Psychologic: Affect normal, judgement normal, mood normal. [] Current Patient Data Vital Signs Vital Signs Date Time Temp Pulse Resp B/P (MAP) Pulse Ox O2 Delivery O2 Flow Rate FiO2 08/24/17 11:55 97.9 80 18 95 Room Air 97.9 EKG EKG [] Radiology/Procedures Radiology/Procedures []PROCEDURE: HAND RIGHT 3V Three-view right hand radiographs 08/24/2017 Clinical history: Chainsaw laceration to the right hand earlier today. PA, lateral and oblique digital radiographs of the right hand were obtained. No fracture or dislocation of the right hand is seen. A 3 mm metallic foreign body is seen within the proximal metaphysis of the proximal phalanx of the right first finger. This is of uncertain age. Mild to moderate degenerative changes are seen involving the first MCP joint. Moderate to severe degenerative changes are seen involving the first carpometacarpal joint. Impression: No fracture or dislocation of the right hand is seen. DICTATED and SIGNED BY: MARSHA ASTUDILLO MD DATE: 08/24/17 [id number] CC: HOMAR WOOTEN MD; WILLY BOLANOS APRN ~ Indication: Right fingers laceration Procedure: The patient was placed in the appropriate position and anesthesia around the lacerations were 1% buffered lidocaine with epinephrine. The lacerations were explored for for foreign objects, none was found. The lacerations were cleaned with 100 ML of normal saline and closed as follows. Thumb laceration was closed with 2 interrupted sutures using 4. 0 Prolene, middle finger laceration was closed with 2 interrupted sutures using 4. 0 Prolene, pinky finger laceration was closed by 3 interrupted sutures using 4. 0 Prolene, pinky finger was closed with 4 interrupted sutures using 4. 0 Prolene. The wounds were left open to air. Course & Med Decision Making Course & Med Decision Making Pertinent Labs and Imaging studies reviewed. (See chart for details) Patient has right fingers lacerations were closed by me as noted in procedures. Right hand x-ray was negative for any acute findings. Tetanus updated. Wound care instructions as well as return precautions provided. Dragon Disclaimer Dragon Disclaimer This electronic medical record was generated, in whole or in part, using a voice recognition dictation system. Departure Departure Impression: Primary Impression: Laceration of right hand Disposition: 01 HOME, SELF-CARE Condition: STABLE Referrals: HOMAR WOOTEN MD (PCP) follow up with your doctor in 7-10 days for suture removal Patient Instructions: Laceration Care, Adult Additional Instructions: You have right fingers lacerations, keep them clean and dry, you can shower. Apply Neosporin to the area twice a day. Have the stitches removed by your doctor in 7-10 days. Monitor the area for signs and symptoms of infection including but not limited to increased redness to the area, yellow drainage from the area, warmth over the laceration site and return to the ED if they occur or see your doctor. Problem Qualifiers Primary Impression: Laceration of right hand Encounter type: initial encounter Foreign body presence: without foreign body Qualified Codes: S61.411A - Laceration without foreign body of right hand , initial encounter WILLY BOLANOS ACCOUNTS RECEIVABLE ACCOUNTANT Aug 24, 2017 14:54
== END 2017-08-24 15:00 | disposition home or self-care (01) ==
LOC: ER 11:41
DX: S61.011A Laceration without foreign body of right thumb without damage to nail, initial encounter (principal); S61.212A Laceration without foreign body of right middle finger without damage to nail, initial encounter; S61.216A Laceration without foreign body of right little finger without damage to nail, initial encounter; S61.214A Laceration without foreign body of right ring finger without damage to nail, initial encounter; W29.3XXA Contact with powered garden and outdoor hand tools and machinery, initial encounter; Y93.89 Activity, other specified; Y92.89 Other specified places as the place of occurrence of the external cause; Y99.8 Other external cause status
CPT/HCPCS: 12002; 73130; 99284-25

== ENCOUNTER → 2018-09-10 | Outpatient (CLI) | payer MEDICARE ==
--- NOTE | 2018-09-10 16:48 | RAD ---
Examination: 2 views of the lumbar spine HISTORY: History of low back pain COMPARISON: CT of the abdomen pelvis from 05/10/2010. FINDINGS: Mild compression change of L1 vertebral body similar to prior CT exam. Minimal retrolisthesis of L2 on L3 measuring 2 mm. Mild intervertebral disc height loss identified throughout the lumbar spine. Moderate facet degenerative changes. IMPRESSION: 1. Moderate degenerative changes lumbar spine. If pain persists, recommend MRI for further evaluation. 2. Mild compression change of L1 vertebral body similar to prior exam. Electronically signed by: Ok Zuleta MD (09/10/2018 4:45 PM) [place] [id number]
== END | disposition home or self-care (01) ==
LOC: RAD 15:28
PROVIDERS: ATTEND Physician Assistant Medical
DX: M47.896 Other spondylosis, lumbar region (principal); M54.42 Lumbago with sciatica, left side
CPT/HCPCS: 72100